=== PATIENT | male | born 1955 | race Caucasian/White ===

== ENCOUNTER 2017-10-04 08:09 | Day surgery (SDC) | payer OTHER ==
[2017-10-04] MEDS ORDERED: FENTAnyl 50 MCG/ML VIAL (09:52)
[2017-10-04] MEDS ORDERED: PROPOFOL 20 ML (09:52)
== END 2017-10-04 13:30 | disposition home or self-care (01) ==
LOC: GIL 08:09
DX: R19.4 Change in bowel habit (principal); D12.7 Benign neoplasm of rectosigmoid junction; D12.5 Benign neoplasm of sigmoid colon; Z85.038 Personal history of other malignant neoplasm of large intestine
CPT/HCPCS: 45380; 88305